=== PATIENT | female | born 1970 ===

== ENCOUNTER 2017-09-09 04:08 | Emergency (ER) | payer SELFPAY ==
[2017-09-09] MEDS ORDERED: CATAPRES PO ONE (04:15)
[2017-09-09] MEDS ORDERED: CATAPRES ONE (04:18)
[2017-09-09 05:08] LABS: Basophils % (Auto) 0.5 % (0.0-1.8); Eosinophils # (Auto) 0.2 K/mm3 (0.0-0.4); Eosinophils % (Auto) 2.6 % (0.0-4.3); Hematocrit 42.7 % (30.3-42.9); Lymphocytes # (Auto) 1.2 K/mm3 (1.2-5.4); Lymphocytes % (Auto) 12.5 % (13.4-35.0); Mean Corpuscular HGB Conc 35 % (30-34); Mean Corpuscular Hemoglobin 36 pg (28-32); Mean Corpuscular Volume 102 fl (79-97); Monocytes # (Auto) 0.6 K/mm3 (0.0-0.8); Monocytes % (Auto) 6.1 % (0.0-7.3); Platelet Count 225 K/mm3 (140-440); Red Blood Count 4.18 M/mm3 (3.65-5.03); Red Cell Distribution Width 12.9 % (13.2-15.2)
[2017-09-09 05:17] LABS: INR 0.85 (0.87-1.13); Partial Thromboplastin Time 33.6 Sec. (24.2-36.6)
[2017-09-09 05:26] LABS: BUN/Creatinine Ratio 15; Blood Urea Nitrogen 12 mg/dL (7-17); Calcium 8.8 mg/dL (8.4-10.2); Hemolysis Index 5
[2017-09-09 10:38] VITALS: BP 131/70
--- NOTE | 2017-09-09 15:20 | Emergency Department Report ---
HPI - General Chief Complaint: Nosebleed Time Seen by Provider: 09/09/17 10:46 - HPI HPI: The patient's 47-year-old female with a history of hypertension, who presents for evaluation of epistaxis. The patient states that early this month she developed the sudden onset of severe constant nasal bleeding for hours. She denies trauma to the nose, recurrent epistaxis, hematemesis, blood in the stool , easy bruising or bleeding, or blood thinner use. The patient denies fever, headache, neck pain, paresthesias, focal motor weakness, blurry vision, ear pain , tinnitus, chest pain, hemoptysis, dyspnea, abdominal pain, confusion or altered mental status. ED Past Medical Hx - Past Medical History Previous Medical History?: Yes Hx Hypertension: Yes - Surgical History Past Surgical History?: Yes Additional Surgical History: fibroid removal 2011 - Social History Smoking Status: Never Smoker Substance Use Type: None - Medications Home Medications: Home Medications Medication Instructions Recorded Confirmed Last Taken Type Hydrochlorothiazide [HCTZ] 25 mg PO QDAY #30 tablet 09/09/17 Unknown Rx Lisinopril [Zestril TAB] 10 mg PO QDAY #31 tablet 09/09/17 Unknown Rx ED Review of Systems ROS: Stated complaint: NOSE BLEED Other details as noted in HPI Constitutional: denies: fever ENT: reports nose bleed denies: throat or neck pain Respiratory: denies: cough, shortness of breath Cardiovascular: denies: chest pain Endocrine: denies unexplained weight loss or gain Gastrointestinal: denies: abdominal pain, nausea Genitourinary: denies: dysuria Musculoskeletal: denies: leg swelling Skin: denies: rash Neurological: denies: headache Hematological/Lymphatic: denies: easy bleeding or easy bruising Psych: denies sadness or hopelessness Physical Exam - Physical Exam Vital Signs: Vital Signs 09/09/17 09/09/17 09/09/17 04:20 04:29 09:06 Temperature 99 F Pulse Rate 95 H 95 H 69 Respiratory 18 13 Rate Blood Pressure 230/130 230/130 Blood Pressure [Left] O2 Sat by Pulse 99 Oximetry 09/09/17 09/09/17 09/09/17 09:15 09:19 09:30 Temperature 97.8 F Pulse Rate 58 L 60 59 L Respiratory 15 16 18 Rate Blood Pressure 164/101 153/89 Blood Pressure 181/98 [Left] O2 Sat by Pulse 95 100 96 Oximetry 09/09/17 09/09/17 09/09/17 09:45 10:00 10:15 Temperature Pulse Rate 52 L 63 57 L Respiratory 15 14 16 Rate Blood Pressure 169/90 134/74 134/69 Blood Pressure [Left] O2 Sat by Pulse 96 99 98 Oximetry 09/09/17 09/09/17 10:31 10:38 Temperature Pulse Rate 55 L 55 L Respiratory 15 15 Rate Blood Pressure 131/70 Blood Pressure 131/70 [Left] O2 Sat by Pulse 97 100 Oximetry Physical Exam: Constitutional: denies: fever ENT: Dry blood present to the left nare denies: throat or neck pain Respiratory: denies: cough, shortness of breath Cardiovascular: denies: chest pain Endocrine: denies unexplained weight loss or gain Gastrointestinal: denies: abdominal pain, nausea Genitourinary: denies: dysuria Musculoskeletal: denies: leg swelling Skin: denies: rash Neurological: denies: headache Hematological/Lymphatic: denies: easy bleeding or easy bruising Psych: denies sadness or hopelessness ED Course Vital Signs 09/09/17 09/09/17 09/09/17 04:20 04:29 09:06 Temperature 99 F Pulse Rate 95 H 95 H 69 Respiratory 18 13 Rate Blood Pressure 230/130 230/130 Blood Pressure [Left] O2 Sat by Pulse 99 Oximetry 09/09/17 09/09/17 09/09/17 09:15 09:19 09:30 Temperature 97.8 F Pulse Rate 58 L 60 59 L Respiratory 15 16 18 Rate Blood Pressure 164/101 153/89 Blood Pressure 181/98 [Left] O2 Sat by Pulse 95 100 96 Oximetry 09/09/17 09/09/17 09/09/17 09:45 10:00 10:15 Temperature Pulse Rate 52 L 63 57 L Respiratory 15 14 16 Rate Blood Pressure 169/90 134/74 134/69 Blood Pressure [Left] O2 Sat by Pulse 96 99 98 Oximetry 09/09/17 09/09/17 10:31 10:38 Temperature Pulse Rate 55 L 55 L Respiratory 15 15 Rate Blood Pressure 131/70 Blood Pressure 131/70 [Left] O2 Sat by Pulse 97 100 Oximetry ED Medical Decision Making - Lab Data Result diagrams: 09/09/17 04:46 09/09/17 04:46 - Medical Decision Making The patient was seen and examined by myself. The patient is placed on a desk monitor and continuous pulse ox. On initial evaluation, the patient was found to be in no distress. Evaluation orders were placed. The patient was given clonidine for her elevated blood pressure. Manual pressure was applied to the patient's nose. On reexamination the patient's blood pressure was found to decrease outside of range concerning for hypertensive emergency and is within normal limits now, and the patient has been without epistaxis for greater than 2 hours. The patient is stable for discharge with outpatient follow -up. The patient is given follow-up and return instructions. The patient expressed understanding and agreed with the plan. The patient is discharged in stable condition. Critical care attestation.: If time is entered above; I have spent that time in minutes in the direct care of this critically ill patient, excluding procedure time. ED Disposition Clinical Impression: Hypertensive urgency, Epistaxis Disposition: DC-01 TO HOME OR SELFCARE Is pt being admited?: No Does the pt Need Aspirin: No Condition: Stable Instructions: Hypertension (ED), Chronic Hypertension (ED), Epistaxis (ED) Referrals: PERRY MCDONNELL MD [Primary Care Provider] - 3-5 Days [facility] [Outside] - 3-5 Days DANIEL NEIL MD [Staff Physician] - 3-5 Days Time of Disposition: 11:17
== END 2017-09-09 11:30 | disposition home or self-care (01) ==
LOC: ED 04:08
DX: R04.0 Epistaxis (principal); I16.0 Hypertensive urgency; I10 Essential (primary) hypertension; Z88.0 Allergy status to penicillin
CPT/HCPCS: 36415; 80048; 85025; 85610; 85730; 99284

== ENCOUNTER 2017-09-10 22:00 | Emergency (ER) | payer SELFPAY ==
[2017-09-11 02:04] LABS: Basophils % (Auto) 0.4 % (0.0-1.8); Eosinophils # (Auto) 0.2 K/mm3 (0.0-0.4); Eosinophils % (Auto) 1.5 % (0.0-4.3); Hematocrit 40.3 % (30.3-42.9); Lymphocytes # (Auto) 1.7 K/mm3 (1.2-5.4); Lymphocytes % (Auto) 15.3 % (13.4-35.0); Mean Corpuscular HGB Conc 35 % (30-34); Mean Corpuscular Hemoglobin 36 pg (28-32); Mean Corpuscular Volume 104 fl (79-97); Monocytes # (Auto) 0.6 K/mm3 (0.0-0.8); Monocytes % (Auto) 5.5 % (0.0-7.3); Platelet Count 245 K/mm3 (140-440); Red Blood Count 3.88 M/mm3 (3.65-5.03); Red Cell Distribution Width 12.6 % (13.2-15.2)
[2017-09-11 02:14] LABS: Calcium 9.4 mg/dL (8.4-10.2); INR 0.89 (0.87-1.13)
[2017-09-11 04:26] VITALS: BP 129/82
--- NOTE | 2017-09-11 04:37 | Emergency Department Report ---
ED ENT HPI - General Chief complaint: Nosebleed Stated complaint: NOSE BLEED Time Seen by Provider: 09/11/17 04:24 Source: patient Mode of arrival: Ambulatory Limitations: No Limitations - History of Present Illness Initial comments: This is a 47-year-old female who was previously unknown to this provider. She reports that she is not . She presents to the ER with complaints of resolved epistaxis. The second time this week. There is no trauma, no cocaine use, denies coughing, sneezing, sore throat. Has no other complaints. MD complaint: epistaxis -: Gradual, days(s) Location: nose Consistency: now resolved Improves with: pressure Worsens with: none Associated Symptoms: denies: fever, cough, gum swelling, toothache, pain with swallowing, sore throat, tinnitus, hearing loss, discharge from ear, rhinorrhea - Related Data Previous Rx's Medication Instructions Recorded Last Taken Type Hydrochlorothiazide [HCTZ] 25 mg PO QDAY #30 tablet 09/09/17 Unknown Rx Lisinopril [Zestril TAB] 10 mg PO QDAY #31 tablet 09/09/17 Unknown Rx Fluticasone [Flonase] 1 spray NS QDAY #1 bottle 09/11/17 Unknown Rx Oxymetazoline 0.05% [Afrin] 1 spray NS BID #1 bottle 09/11/17 Unknown Rx Allergies Allergy/AdvReac Type Severity Reaction Status Date / Time Penicillins Allergy Rash Verified 09/09/17 04:35 ED Dental HPI - General Chief complaint: Nosebleed Stated complaint: NOSE BLEED Time Seen by Provider: 09/11/17 04:24 Source: patient Mode of arrival: Ambulatory Limitations: No Limitations - Related Data Previous Rx's Medication Instructions Recorded Last Taken Type Hydrochlorothiazide [HCTZ] 25 mg PO QDAY #30 tablet 09/09/17 Unknown Rx Lisinopril [Zestril TAB] 10 mg PO QDAY #31 tablet 09/09/17 Unknown Rx Fluticasone [Flonase] 1 spray NS QDAY #1 bottle 09/11/17 Unknown Rx Oxymetazoline 0.05% [Afrin] 1 spray NS BID #1 bottle 09/11/17 Unknown Rx Allergies Allergy/AdvReac Type Severity Reaction Status Date / Time Penicillins Allergy Rash Verified 09/09/17 04:35 ED Review of Systems ROS: Stated complaint: NOSE BLEED Other details as noted in HPI Comment: All other systems reviewed and negative ED Past Medical Hx - Past Medical History Previous Medical History?: Yes Hx Hypertension: Yes - Surgical History Past Surgical History?: Yes Additional Surgical History: fibroid removal 2011 - Social History Smoking Status: Never Smoker Substance Use Type: None - Medications Home Medications: Home Medications Medication Instructions Recorded Confirmed Last Taken Type Hydrochlorothiazide [HCTZ] 25 mg PO QDAY #30 tablet 09/09/17 Unknown Rx Lisinopril [Zestril TAB] 10 mg PO QDAY #31 tablet 09/09/17 Unknown Rx Fluticasone [Flonase] 1 spray NS QDAY #1 bottle 09/11/17 Unknown Rx Oxymetazoline 0.05% [Afrin] 1 spray NS BID #1 bottle 09/11/17 Unknown Rx ED Physical Exam - General Limitations: No Limitations General appearance: alert, in no apparent distress - Head Head exam: Present: atraumatic, normocephalic - Eye Eye exam: Present: normal appearance, PERRL, EOMI. Absent: nystagmus - ENT ENT exam: Present: normal exam, normal orophraynx, mucous membranes moist, normal external ear exam, other (there is no nasal septal hematoma. There is no active nasal bleeding at this time.) - Neck Neck exam: Present: normal inspection. Absent: tenderness, meningismus - Respiratory Respiratory exam: Present: normal lung sounds bilaterally. Absent: respiratory distress, chest wall tenderness - Cardiovascular Cardiovascular Exam: Present: regular rate, normal rhythm, normal heart sounds. Absent: systolic murmur, diastolic murmur, rubs, gallop - GI/Abdominal GI/Abdominal exam: Present: soft, normal bowel sounds. Absent: distended, tenderness, guarding, rebound, rigid, pulsatile mass - Extremities Exam Extremities exam: Present: normal inspection, full ROM. Absent: pedal edema, joint swelling, calf tenderness - Back Exam Back exam: Present: normal inspection, full ROM. Absent: tenderness, CVA tenderness (R), paraspinal tenderness, vertebral tenderness - Neurological Exam Neurological exam: Present: alert, oriented X3, CN II-XII intact, normal gait, other (Extraocular movements intact. Tongue midline. No facial droop. Facial sensation intact to light touch in the V1, V2, V3 distribution bilaterally. 5 and 5 strength in 4 extremities.. Sensation is intact to light touch in 4 extremities.Extraocular movements intact. Tongue midline. No facial droop. Facial sensation intact to light touch in the V1, V2, V3 distribution bilaterally. 5 and 5 strength in 4 extremities.. Sensation is intact to light touch in 4 extremities.). Absent: motor sensory deficit - Psychiatric Psychiatric exam: Present: normal affect, normal mood - Skin Skin exam: Present: warm, dry, intact, normal color. Absent: rash ED Course Vital Signs 09/11/17 09/11/17 09/11/17 00:55 04:16 04:23 Temperature 98.5 F Pulse Rate 96 H Respiratory 18 16 Rate Blood Pressure 143/89 129/82 Blood Pressure [Left] O2 Sat by Pulse 99 97 Oximetry 09/11/17 04:26 Temperature 98.3 F Pulse Rate 78 Respiratory 16 Rate Blood Pressure Blood Pressure 129/82 [Left] O2 Sat by Pulse 97 Oximetry ED Medical Decision Making - Lab Data Result diagrams: 09/11/17 01:25 09/11/17 01:25 Vital Signs 09/11/17 09/11/17 09/11/17 00:55 04:16 04:23 Temperature 98.5 F Pulse Rate 96 H Respiratory 18 16 Rate Blood Pressure 143/89 129/82 Blood Pressure [Left] O2 Sat by Pulse 99 97 Oximetry 09/11/17 04:26 Temperature 98.3 F Pulse Rate 78 Respiratory 16 Rate Blood Pressure Blood Pressure 129/82 [Left] O2 Sat by Pulse 97 Oximetry Labs 09/11/17 09/11/17 09/11/17 01:25 01:25 01:25 WBC 11.3 H RBC 3.88 Hgb 14.0 Hct 40.3 MCV 104 H MCH 36 H MCHC 35 H RDW 12.6 L Plt Count 245 Lymph % (Auto) 15.3 [place] % (Auto) 5.5 Eos % (Auto) 1.5 Baso % (Auto) 0.4 Lymph # 1.7 [place] # 0.6 Eos # 0.2 Baso # 0.0 Seg Neutrophils % 77.3 H Seg Neutrophils # 8.7 H PT 12.5 INR 0.89 APTT 31.0 Sodium 137 Potassium 4.3 Chloride 96.7 L Carbon Dioxide 26 Anion Gap 19 BUN 28 H Creatinine 1.2 Estimated GFR 49 BUN/Creatinine Ratio 23 Glucose 114 H Calcium 9.4 - Medical Decision Making Differential diagnosis, including but not limited to: Sinusitis, nasal polyps, seasonal allergies resolved epistaxis Assessment and plan: 47-year-old female with resolved nasal bleeding. She is afebrile with reassuring vital signs and has a benign physical examination. She is not actively bleeding at this time. The patient is counseled that bleeding will likely return. Patient given a tongue depressor device, patient to be discharged with Flonase, Afrin, instructions to follow up with outpatient otolaryngology. , Critical care attestation.: If time is entered above; I have spent that time in minutes in the direct care of this critically ill patient, excluding procedure time. ED Disposition Clinical Impression: History of epistaxis Disposition: TO HOME OR SELFCARE Is pt being admited?: No Does the pt Need Aspirin: No Condition: Stable Instructions: Epistaxis (ED) Additional Instructions: Take the medications as directed. Follow-up with a primary care doctor for outpatient ENT doctor within the next 7-[address] Mike Garrido is a local ENT specialist. Nasal bleeding is likely to recur. If it happens, apply Afrin spray as directed, one to 2 sprays per nostril, then apply tongue depressor device to the nose, apply direct pressure for 15-20 minutes. This typically resolves nasal bleeding. If this does not resolve nasal bleeding, return to the ER. Return to the ER right away with new pain, worsened pain, migration of pain, fevers, chills, lethargy, irritability, projectile vomiting, change in mental status, confusion, inability to tolerate liquid feeds. Referrals: PERRY MCDONNELL MD [Primary Care Provider] - 3-5 Days MARY CARMEN LIU MD [Staff Physician] - 3-5 Days Forms: Work/School Release Form(ED)
== END 2017-09-11 04:47 | disposition home or self-care (01) ==
LOC: ED 22:00
DX: R04.0 Epistaxis (principal); Z88.0 Allergy status to penicillin; I10 Essential (primary) hypertension
CPT/HCPCS: 36415; 80048; 85025; 85610; 85730; 99283